=== PATIENT | female | born 2005 | race African-American/Black ===

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

== ENCOUNTER 2023-03-17 09:42 | Day surgery (SDC) | payer OTHER ==
[2023-03-17] MEDS ORDERED: Acetaminophen 500 MG TAB ONE (09:51)
[2023-03-17] MEDS ORDERED: Acetaminophen 500 MG TAB PO SCH (10:15)
== END 2023-03-17 13:05 | disposition home or self-care (01) ==
LOC: CSHSDC 09:42
PROVIDERS: ATTEND Advanced Practice Midwife
DX: O99.019 Anemia complicating pregnancy, unspecified trimester (principal); D64.9 Anemia, unspecified; Z3A.00 Weeks of gestation of pregnancy not specified
CPT/HCPCS: 96365; 96366; J1756; J3490

== ENCOUNTER 2023-03-19 22:19 | Day surgery (SDC) | payer OTHER ==
[2023-03-19] MEDS ORDERED: hydrALAZINE 20 MG/ML VIAL SLOW IVP PRN (22:40)
[2023-03-19 22:51] VITALS: BMI 24.2
[2023-03-19 23:32] LABS: #Basophils 0.1 10x3/uL (0.0-0.2); #Eosinphils 0.1 10x3/uL (0.0-0.5); #Monocytes 1.3 10x3/uL (0.0-1.1); #Neutrophils 9.2 10x3/uL (1.5-8.4); %Basophils 0.4 % (0.0-2.0); %Eosinophils 0.7 % (0.0-6.0); %Lymphocytes 14.8 % (18.0-47.0); %Monocytes 10.1 % (0.0-10.0); %Neutrophils 71.7 % (40.0-75.0); Hematocrit 26.4 % (34.9-44.5); Hemoglobin 8.4 g/dL (12.0-15.5); Mean Corpuscular HGB CONC 31.8 g/dL (32.0-36.0); Mean Corpuscular Hemoglobin 19.5 pg (27.0-33.0); Mean Corpuscular Volume 61.3 fl (81.6-98.3); Mean Platelet Volume 10.1 fl (7.4-10.4); Platelet Count 374 10x3/uL (150-450); RBC Distribution Width 19.2 % (11.5-14.5); Red Blood Cell (RBC) Count 4.31 10x6/uL (3.90-5.03); White Blood Cell (WBC) Count 12.8 10x3/uL (3.5-10.5)
[2023-03-19 23:46] LABS: Bilirubin Neg (Negative); Blood, Urine Negative (Negative); Clarity Clear (Clear); Glucose, Urine (Dipstick) Normal (Negative); Ketone, Urine Negative (Negative); Leukocyte 100 (Negative); Nitrite Negative (Negative); Protein, Urine (Dipstick) Negative (Neg-Trace); Specific Gravity, Urine 1.015 (1.005-1.030); Urobilinogen Normal mg/dL (Less than 2); pH, Urine 6.5 (5.0-9.0)
[2023-03-19 23:52] LABS: Amphetamine Not Detected (NotDetected); Barbiturates Screen Not Detected (NotDetected); Benzodiazepine Screen Not Detected (NotDetected); Cocaine Metabolite Screen Not Detected (NotDetected); Methadone Not Detected (NotDetected); Methamphetamine Not Detected (NotDetected); Opiate Screen Not Detected (NotDetected); Oxycodone Screen Not Detected (NotDetected); Phencyclidine (PCP) Not Detected (NotDetected); THC/Cannabinoid Screen Not Detected (NotDetected); Tricyclic Screen Not Detected (NotDetected)
[2023-03-20 00:04] LABS: Fetal Membranes Rupture No Membranes Rupture (No Rupture)
[2023-03-20] MEDS ORDERED: Acetaminophen 500 MG TAB PO SCH (00:15)
[2023-03-20 00:16] LABS: Anisocytosis SLIGHT = 6-15 cells (100X) (0-5/hpf); Hypochromia SLIGHT = 6-15 cells (100X) (0-5/hpf); Microcytosis MODERATE=15-30 cells (100X) (0-5/hpf); Platelet Adequacy Comment Appears Adequate; Polychromasia SLIGHT = 2-3 cells (100X) (0-2/hpf); Tear Drops SLIGHT = 2-5 cells (100X) (0-1/hpf)
[2023-03-20 00:26] LABS: Bacteria/HPF Rare-Few HPF (None Seen); CAUTI Indications for Culture Pregnancy; RBC/HPF None Seen HPF (0-3); Squamous Epithelial 0-3 HPF (0-3)
[2023-03-20 00:27] LABS: Urine Culture Reflex Yes Yes
[2023-03-20 00:45] LABS: HIV (1/2) Antibody/Antigen Non-Reactive (NonReactive); HIV 1/2 INDEX 0.08 S/CO (<1.00)
[2023-03-20 00:46] LABS: Syphilis Antibody Nonreactive (Nonreactive); Syphilis Antibody Index 0.08 S/CO (<1.00 Non-Reactive)
[2023-03-21 05:37] LABS: Chlam.trachomatis by PCR,Urine Not Detected (NotDetected); GC N.gonorrhoeae PCR,UrineVOID Not Detected (NotDetected)
== END 2023-03-20 04:45 | disposition home or self-care (01) ==
LOC: CSHLD/OP 22:19
PROVIDERS: ATTEND Family Medicine
DX: O47.03 False labor before 37 completed weeks of gestation, third trimester (principal); O99.013 Anemia complicating pregnancy, third trimester; D64.9 Anemia, unspecified; O09.813 Supervision of pregnancy resulting from assisted reproductive technology, third trimester; Z79.899 Other long term (current) drug therapy; Z91.041 Radiographic dye allergy status; Z3A.34 34 weeks gestation of pregnancy
CPT/HCPCS: 36415; 80306; 81001; 84112; 85060; 86780; 87070; 87086; 87205; 87389; 87480; 87491; 87510; 87591; 87660; 87661; 96360; 96361; 99285

== ENCOUNTER 2023-03-28 18:50 | Day surgery (SDC) | payer OTHER ==
[2023-03-28 19:24] VITALS: BMI 25.8
[2023-03-28 19:50] LABS: Fetal Membranes Rupture No Membranes Rupture (No Rupture)
== END 2023-03-28 21:25 | disposition home or self-care (01) ==
LOC: CSHLD/OP 18:50
PROVIDERS: ATTEND Advanced Practice Midwife
DX: O47.03 False labor before 37 completed weeks of gestation, third trimester (principal); O23.593 Infection of other part of genital tract in pregnancy, third trimester; B96.89 Other specified bacterial agents as the cause of diseases classified elsewhere; O09.893 Supervision of other high risk pregnancies, third trimester; O99.820 Streptococcus B carrier state complicating pregnancy; Z91.041 Radiographic dye allergy status; Z3A.36 36 weeks gestation of pregnancy
CPT/HCPCS: 84112

== ENCOUNTER 2023-04-01 05:42 | Inpatient (IN) | payer OTHER ==
[2023-04-01 06:02] VITALS: BMI 27.6
[2023-04-01] MEDS ORDERED: Lidocaine 1% (PF) 30 ML VIAL SC PRN (06:07)
[2023-04-01] MEDS ORDERED: HYDROcodone/Acetaminophen 5/325 mg Tablet PO PRN ×3 (06:07→21:25)
[2023-04-01] MEDS ORDERED: fentaNYL 50 mcg/mL 1 mL Vial SLOW IVP PRN (06:07)
[2023-04-01] MEDS ORDERED: Acetaminophen 500 MG TAB PO PRN (06:07)
[2023-04-01] MEDS ORDERED: Promethazine HCl 25 MG/ML VIAL IM PRN ×2 (06:07→07:16)
[2023-04-01] MEDS ORDERED: hydrALAZINE 20 MG/ML VIAL SLOW IVP PRN ×2 (06:07→21:25)
[2023-04-01] MEDS ORDERED: Misoprostol 200 MCG TAB PR PRN (06:07)
[2023-04-01] MEDS ORDERED: Penicillin G Potassium 5 MILL.UNITS VIAL ONE (06:07)
[2023-04-01] MEDS ORDERED: Methylergonovine 0.2 MG/ML VIAL IM PRN (06:07)
[2023-04-01] MEDS ORDERED: Ibuprofen 800 MG TAB PO PRN (06:07)
[2023-04-01] MEDS ORDERED: Ondansetron PF 4 MG/2 ML Vial IVP PRN ×2 (06:07→07:16)
[2023-04-01] MEDS ORDERED: Oxytocin 30 units/NS 500 ML 500 ML IV SCH ×3 (06:15→21:30)
[2023-04-01] MEDS ORDERED: Penicillin G Potassium 5 MILL.UNITS in Sodium Chloride 0.9% 100 ML IVPB SCH (06:15)
[2023-04-01 06:34] LABS: Hematocrit 33.3 % (34.9-44.5); Hemoglobin 10.5 g/dL (12.0-15.5); Mean Corpuscular HGB CONC 31.5 g/dL (32.0-36.0); Mean Corpuscular Volume 63.5 fl (81.6-98.3); Platelet Count 387 10x3/uL (150-450); RBC Distribution Width 25.7 % (11.5-14.5); Red Blood Cell (RBC) Count 5.24 10x6/uL (3.90-5.03); White Blood Cell (WBC) Count 12.9 10x3/uL (3.5-10.5)
[2023-04-01] MEDS ORDERED: fentaNYL/Ropivacaine Epidural 100 ML ONE (06:47)
[2023-04-01 06:58] LABS: Syphilis Antibody Nonreactive (Nonreactive); Syphilis Antibody Index 0.09 S/CO (<1.00 Non-Reactive)
[2023-04-01 07:00] LABS: HBSAg Index 0.17 S/CO (0-0.99); Hep B Surf Ag - L&D Non-Reactive S/CO (NonReactive)
[2023-04-01] MEDS ORDERED: Acetaminophen 325 MG TAB PO PRN (07:16)
[2023-04-01] MEDS ORDERED: Lactated Ringer's 500 ML IV PRN (07:16)
[2023-04-01] MEDS ORDERED: Naloxone HCl 0.4 mg/ml Vial IVP PRN ×2 (07:16)
[2023-04-01] MEDS ORDERED: diphenhydrAMINE 50 MG/ML VIAL IVP PRN (07:16)
[2023-04-01] MEDS ORDERED: ePHEDrine Sulfate 50 MG/10 ML VIAL SLOW IVP PRN (07:16)
[2023-04-01] MEDS ORDERED: Moisturizing Cream (Eucerin) 113 GM JAR TOP PRN (07:16)
[2023-04-01] MEDS ORDERED: Communication Order-Pharmacy FS SCH (07:30)
[2023-04-01] MEDS ORDERED: fentaNYL 2 mcg/Ropivacaine 0.2% Epidural 100 ML CADD EPIDURAL SCH (07:30)
[2023-04-01] MEDS ORDERED: Bupivacaine 0.25% HCL 30 ML VIAL ONE (08:00)
[2023-04-01] MEDS: Penicillin G 2.5 MILL.units 2.5 MILL.UNITS in Premix 1 BAG IVPB SCH ×2 (15:53→20:05)
[2023-04-01] MEDS ORDERED: Bisacodyl 10 MG SUPP PR PRN (21:25)
[2023-04-01] MEDS ORDERED: Benzocaine-Menthol 82.5 ML CAN TOP PRN (21:25)
[2023-04-01] MEDS ORDERED: Milk Of Magnesia 30 ML UDCUP PO PRN (21:25)
[2023-04-01] MEDS ORDERED: Boostrix 0.5 ML (Tdap) VIAL (>/=7 yrs of age) IM ONE (21:25)
[2023-04-01] MEDS: Ibuprofen 800 MG TAB PO SCH (21:45)
[2023-04-02] MEDS: HYDROcodone/Acetaminophen 5/325 mg Tablet PO PRN ×2 (03:10→17:13)
[2023-04-02] MEDS: Ibuprofen 800 MG TAB PO SCH ×3 (05:40→21:10)
[2023-04-02] MEDS: Penicillin G 2.5 MILL.units 2.5 MILL.UNITS in Premix 1 BAG IVPB SCH (07:16)
[2023-04-02] MEDS: Docusate 100 MG CAP PO SCH ×2 (08:30→21:10)
[2023-04-02] MEDS: Prenatal Vitamin 1 TAB PO SCH (08:30)
[2023-04-02] MEDS: Ferrous Sulfate 325 MG TAB PO SCH ×2 (09:27→18:23)
[2023-04-03] MEDS: HYDROcodone/Acetaminophen 5/325 mg Tablet PO PRN ×2 (04:48→17:01)
[2023-04-03] MEDS: Ibuprofen 800 MG TAB PO SCH ×2 (06:13→13:30)
[2023-04-03] MEDS: Docusate 100 MG CAP PO SCH (07:47)
[2023-04-03] MEDS: Prenatal Vitamin 1 TAB PO SCH (07:47)
[2023-04-03 08:47] VITALS: BP 99/58; TEMP 98.8
[2023-04-03] MEDS: Ferrous Sulfate 325 MG TAB PO SCH ×2 (10:32→15:41)
== END 2023-04-03 18:00 | disposition home or self-care (01) | DRG 807 ==
LOC: CSHLD/OP 05:42 → CSHLD 06:09 → CSHPED 15:39
PROVIDERS: ADMIT Obstetrics & Gynecology; ATTEND Obstetrics & Gynecology
PROC: 10E0XZZ Delivery of Products of Conception, External Approach (ICD-10-PCS; principal; 2023-04-01)
PROC: 3E033XZ Introduction of Vasopressor into Peripheral Vein, Percutaneous Approach (ICD-10-PCS; 2023-04-01)
DX: O42.02 Full-term premature rupture of membranes, onset of labor within 24 hours of rupture (principal); Z37.0 Single live birth; O99.02 Anemia complicating childbirth; Z3A.36 36 weeks gestation of pregnancy; D50.9 Iron deficiency anemia, unspecified; O76 Abnormality in fetal heart rate and rhythm complicating labor and delivery
CPT/HCPCS: 51702; 85027; 86780; 86850; 86900; 86901; 87340; 99285; J2540; S0020